=== PATIENT | male | born 1945 ===

== ENCOUNTER 2019-01-14 15:10 | Emergency (ER) | payer MEDICARE ==
[2019-01-14 15:48] VITALS: BP 100/60
--- NOTE | 2019-01-14 16:55 | ED ---
Respiratory - HPI Summary HPI Summary: Mr. Leo got out of rehab for shoulder surgery about a week ago. Soon after, he began to develop a dry cough. He denies SOB or CP. He is not aware of any fevers or other respiratory symptoms. - History of Current Complaint Chief Complaint: UCRespiratory Stated Complaint: COUGH Time Seen by Provider: 01/14/19 16:24 Hx Obtained From: Patient, Family/Car Greaser Onset/Duration: Gradual Onset, Lasting Days Timing: Constant Initial Severity: Mild Current Severity: Mild Pain Intensity: 2 Character: Cough (Nonproductive) Sputum Amount: None Aggravating Factor(s): Nothing Alleviating Factor(s): Nothing Associated Signs and Symptoms: Negative - Allergy/Home Medications Allergies/Adverse Reactions: Allergies Allergy/AdvReac Type Severity Reaction Status Date / Time No Known Allergies Allergy Verified 01/14/19 15:37 Home Medications: Home Medications Aspirin 81 mg CHEW TAB* [Aspirin Low Dose TAB*] 81 mg PO DAILY 01/14/19 [ History Confirmed 01/14/19] Atorvastatin* [Lipitor*] 20 mg PO 1700 01/14/19 [History Confirmed 01/14/19] Calcium Carbonate [Calcium] 1,200 mg PO DAILY 01/14/19 [History Confirmed ] Cholecalciferol (Vitamin D3) [Vitamin D3] 2,000 unit PO DAILY 01/14/19 [History Confirmed 01/14/19] Cyanocobalamin (Vitamin B-12) [B-12 Microlozenge] 500 mcg SL DAILY 01/14/19 [ History Confirmed 01/14/19] Metoprolol Tartrate [Lopressor] 50 mg PO BID 01/14/19 [History Confirmed ] Nitroglycerin TAB 0.3 MG* 0.3 mg SL Q5M PRN 01/14/19 [History Confirmed 01/14/19 ] Omeprazole 20 mg PO DAILY 01/14/19 [History Confirmed 01/14/19] Valsartan/Hydrochlorothiazide [Valsartan/Hydrochlorothia] 1 tab PO DAILY [History Confirmed 01/14/19] PMH/Surg Hx/FS Hx/Imm Hx Previously Healthy: Yes Cardiovascular History: Reports: Hx Hypertension - Cancer History Cancer Type, Location and Year: Prostate cancer - Surgical History Surgery Procedure, Year, and Place: R shoulder surgery 12/23/2017. Hip replacement x 2. Prostate cancer Infectious Disease History: No Infectious Disease History: Denies: Traveled Outside the [place] in Last 30 Days - Social History Alcohol Use: Daily Substance Use Type: Reports: None Hx Tobacco Use: Yes Smoking Status (MU): Former Smoker Review of Systems Constitutional: Negative Eyes: Negative ENT: Negative Cardiovascular: Negative Positive: Cough Positive: Diarrhea - He was incontinent of a diarrheal stool after waking up from a nap in his chair. Positive: incontinence - 3 times when he first got out of the hospital but it is gone now. Musculoskeletal: Negative Skin: Negative Neurological: Negative Psychological: Normal All Other Systems Reviewed And Are Negative: Yes Physical Exam - Summary Physical Exam Summary: Nontoxic in appearance with stable vitals and a dry cough. Triage Information Reviewed: Yes Vital Signs On Initial Exam: Initial Vitals Temp Pulse Resp BP Pulse Ox 98.3 F 86 18 100/60 95 01/14/19 15:36 01/14/19 15:36 01/14/19 15:36 01/14/19 15:36 01/14/19 15:36 Vital Signs Reviewed: Yes Appearance: Positive: Well-Appearing Skin: Positive: Warm Eyes: Positive: Normal ENT: Positive: Normal ENT inspection Neck: Positive: Supple Respiratory/Lung Sounds: Positive: Clear to Auscultation, Breath Sounds Present Cardiovascular: Positive: Normal Abdomen Description: Positive: Nontender Musculoskeletal: Positive: Normal Neurological: Positive: Normal Diagnostics - Vital Signs Vital Signs Temp Pulse Resp BP Pulse Ox 01/14/19 15:36 98.3 F 86 18 100/60 95 - Laboratory Lab Statement: Any lab studies that have been ordered have been reviewed, and results considered in the medical decision making process. - Radiology CXR Radiology Interpretation Completed By: Radiologist - Small right pleural effusion Disposition - Course Course Of Treatment: Mr. Rocha had a slight irritating, nonproductive cough for about a week since he got home from rehab for a shoulder replacement. People have been telling him that he is wheezing. His exam was unremarkable here and a CXR showed only a small pleural effusion. I will give hime a trial of a steroid inhaler for a few days to see if he just has irritation to his bronchial tubes from his recent GET. - Diagnoses Provider Diagnoses: Pleural effusion Discharge - Sign-Out/Discharge Documenting (check all that apply): Patient Departure All imaging exams completed and their final reports reviewed: Yes - Discharge Plan Condition: Stable Disposition: HOME Patient Education Materials: Bronchospasm (ED), Pleural Effusion (ED) Referrals: Devan Erickson MD [Primary Care Provider] - Additional Instructions: Please follow up with Dr. Erickson or return here if not improving in 2-3 days or if worsening. - Billing Disposition and Condition Condition: STABLE Disposition: Home
== END 2019-01-14 17:47 | disposition home or self-care (01) ==
LOC: UCEAST 15:10
DX: J90 Pleural effusion, not elsewhere classified (principal); I10 Essential (primary) hypertension; Z87.891 Personal history of nicotine dependence; Z79.899 Other long term (current) drug therapy; Z79.82 Long term (current) use of aspirin; Z85.46 Personal history of malignant neoplasm of prostate
CPT/HCPCS: 71046; 99202; G0463

== ENCOUNTER 2019-06-26 15:39 | Emergency (ER) | payer MEDICARE ==
[2019-06-26 15:53] VITALS: BP 140/100
--- NOTE | 2019-06-26 16:21 | UC ---
Skin Complaint HPI - HPI Summary HPI Summary: PATIENT SUSPECTS HE HAD AN INSECT BITE TO HIS LEFT FOREARM ABOUT A WEEK AGO. HE FLICKED AWAY "A BLACK DOT" AND THEN DEVELOPED A PURPLISH LESION IN THE AREA ABOUT 1 CM IN DIAMETER. NOT ITCHY, NOT PAINFUL, NO DRAINAGE, NOT ELEVATED. PATIENT DENIES ANY FEVER, HEADACHE, UNUSUAL JOINT PAINS OR BODY ACHES. - History of Current Complaint Chief Complaint: UCSkin Time Seen by Provider: 06/26/19 15:42 Stated Complaint: SKIN COMPLAINT Hx Obtained From: Patient, Family/Veterinarian Assistant - Onset/Duration: Gradual Onset, Lasting Days Timing: Constant Onset Severity: Mild Current Severity: Mild Pain Intensity: 0 Pain Scale Used: 0-10 Numeric Location: Discrete - LEFT FOREARM Aggravating Factor(s): Nothing Alleviating Factor(s): Nothing Associated Signs & Symptoms: Negative: Fever, Drainage, Tenderness, Red Streaks Related History: Possible Reaction to: Insect - Allergy/Home Medications Allergies/Adverse Reactions: Allergies Allergy/AdvReac Type Severity Reaction Status Date / Time No Known Allergies Allergy Verified 06/26/19 15:53 Home Medications: Home Medications Aspirin 81 mg CHEW TAB* 1 tab PO DAILY 06/26/19 [History Confirmed 06/26/19] PMH/Surg Hx/FS Hx/Imm Hx Cardiovascular History: Cardiac Disease - STENTS, Hypertension, Myocardial Infarction Cancer History: Prostate Cancer - Surgical History Surgical History: Yes Surgery Procedure, Year, and Place: R shoulder surgery 12/23/2017. Hip replacement x 2. Prostate cancer - Family History Known Family History: Positive: Non-Contributory - Social History Alcohol Use: Daily Substance Use Type: None Smoking Status (MU): Former Smoker Review of Systems All Other Systems Reviewed And Are Negative: Yes Constitutional: Positive: Negative Skin: Positive: Other - INSECT BITE LEFT FOREARM Respiratory: Positive: Negative Cardiovascular: Positive: Negative Gastrointestinal: Positive: Negative Musculoskeletal: Positive: Negative Neurological: Positive: Negative Physical Exam Triage Information Reviewed: Yes Appearance: Well-Appearing, No Pain Distress, Well-Nourished Vital Signs: Initial Vital Signs Temp 98.8 F 06/26/19 15:46 Pulse 77 06/26/19 15:46 Resp 17 06/26/19 15:46 BP 140/100 06/26/19 15:46 Pulse Ox 96 06/26/19 15:46 Vital Signs Reviewed: Yes Eyes: Positive: Conjunctiva Clear ENT: Positive: Hearing grossly normal Neck: Positive: Supple Respiratory: Positive: No respiratory distress, No accessory muscle use Cardiovascular: Positive: Pulses Normal Abdomen Description: Positive: Soft Musculoskeletal: Positive: No Edema Neurological: Positive: Alert Psychological: Positive: Age Appropriate Behavior Skin: Positive: Other - 2CM X 1 CM RING OF HYPERPIGMENTATION SURROUNDING INSECT BITE SITE THAT IS CLEARLY RESOLVING. NO EXCORIATION. NO TENDERNESS, FLUCTUANCE, INDURATION OR ERYTHEMA. Course/Dx - Course Course Of Treatment: RESOLVING LOCAL REACTION TO INSECT BITE LEFT FOREARM. NO SUGGESTION OF INFECTION. NOT CLINICALLY CONSISTENT WITH ERYTHEMA MIGRANS. NO INTERVENTION INDICATED. - Diagnoses Provider Diagnosis: Insect bite of left forearm with local reaction Discharge ED - Sign-Out/Discharge Documenting (check all that apply): Patient Departure All imaging exams completed and their final reports reviewed: No Studies - Discharge Plan Condition: Stable Disposition: HOME Patient Education Materials: Insect Bite or Sting (ED) Referrals: Devan Erickson MD [Primary Care Provider] - If Needed Additional Instructions: THE LESION ON YOUR ARM IS RESOLVING. IT IS LIKELY DUE TO A LOCAL REACTION TO WHATEVER INSECT BIT YOU BUT IT IS NOT CLINICALLY CONSISTENT WITH THE LYME DISEASE RASH. LONG IT CONTINUES TO IMPROVE AND YOU HAVE NO ADDITIONAL SYMPTOMS THERE IS NO INTERVENTION INDICATED. - Billing Disposition and Condition Condition: STABLE Disposition: Home
== END 2019-06-26 16:35 | disposition home or self-care (01) ==
LOC: UCEAST 15:39
DX: S50.862A Insect bite (nonvenomous) of left forearm, initial encounter (principal); L08.9 Local infection of the skin and subcutaneous tissue, unspecified; W57.XXXA Bitten or stung by nonvenomous insect and other nonvenomous arthropods, initial encounter; Y92.9 Unspecified place or not applicable; Z87.891 Personal history of nicotine dependence; Z79.82 Long term (current) use of aspirin
CPT/HCPCS: 99201; G0463